=== PATIENT | male | born 1960 | race Caucasian/White ===

== ENCOUNTER 2020-08-26 14:42 | Inpatient (IN) | payer BC, OTHER ==
[~2020-08-26] VITALS: Ht 185.4 cm; Wt 105.6 kg
[2020-08-26] MEDS ORDERED: ACETAMINOPHEN 325 MG TAB PO ONE (15:45)
[2020-08-26] MEDS ORDERED: ONDANSETRON HCL 4 MG/2 ML VIAL ONE (16:21)
[2020-08-26 16:30] LABS: Basophils # (auto) 0.1 10 ^3/uL (0-0.2); Basophils % (auto) 0.5 % (0.0-2.0); Eosinophils # (auto) 0 10 ^3/uL (0-0.8); Hemoglobin 14.2 g/dL (13.5-17.5); Lymphocytes # (auto) 0.8 10 ^3/uL (0.4-5.4); Lymphocytes % (auto) 7.9 % (10.0-50.0); Mean Corpuscular Hemoglobin 30.8 pg (28.0-32.0); Mean Corpuscular Hgb Conc. 33.9 g/dL (32.0-36.0); Mean Corpuscular Volume 91.1 fL (80.0-100.0); Monocytes # (auto) 0.6 10 ^3/uL (0-1.3); Monocytes % (auto) 6.3 % (0.0-12.0); Neutrophils # (auto) 8.8 10 ^3/uL (1.6-8.6); Neutrophils % (auto) 85.3 % (37.0-80.0); Platelet Count (auto) 214 10^3/uL (140-450); Red Cell Distribution Width 14.3 % (11.8-14.3); White Blood Cell 10.3 10^3/uL (4.4-10.8)
[2020-08-26] MEDS ORDERED: ONDANSETRON HCL 4 MG/2 ML VIAL IV ONE (16:30)
[2020-08-26 16:49] LABS: Albumin 3.7 g/dL (3.4-5.0); Anion Gap 8 (5-15); Blood Urea Nitrogen 15 mg/dL (7-18); Calcium 8.5 mg/dL (8.5-10.1); Carbon Dioxide 21 mmol/L (21-32); Chloride 103 mmol/L (98-107); Glucose 92 mg/dL (74-106); Potassium 3.5 mmol/L (3.5-5.1); Sodium 132 mmol/L (136-145)
[2020-08-26 16:58] LABS: Alanine Aminotransferase 25 U/L (16-61); Alkaline Phosphatase 59 U/L (45-117); Aspartate Aminotransferase 14 U/L (15-37); Bilirubin, Total 0.7 mg/dL (0.2-1.0); CRP High Sensitivity 8.24 mg/dL (< 0.3); GFR African American 105 mL/min; GFR Non-African American 87 mL/min; Total Protein 7.1 g/dL (6.4-8.2)
[2020-08-26] MEDS ORDERED: methylPREDNISolone SOD SUCC 125 MG/2 ML VL IV ONE (17:30)
[2020-08-26] MEDS ORDERED: MORPHINE SULF INJ 2 MG/ML SYRINGE 1ML IV PRN ×3 (17:30→18:00)
[2020-08-26] MEDS ORDERED: ENOXAPARIN SOD 100 MG/1 ML SYRINGE SC ONE (17:30)
[2020-08-26] MEDS ORDERED: NITROGLYCERIN 0.4 MG SL TAB SL PRN ×2 (17:30→18:00)
[2020-08-26] MEDS ORDERED: LORazepam 0.5 MG TAB PO PRN (18:00)
[2020-08-26] MEDS ORDERED: DOCUSATE SOD 100 MG CAP PO PRN (18:00)
[2020-08-26] MEDS ORDERED: ONDANSETRON HCL 4 MG/2 ML VIAL IV PRN (18:00)
[2020-08-26] MEDS ORDERED: ALUM & MAG HYDROX-SIMETH LIQ(MAALOX) 30 ML PO PRN (18:00)
[2020-08-26] MEDS ORDERED: HYDROcodone-ACET 5/325MG TAB PO PRN (18:00)
[2020-08-26] MEDS ORDERED: VANCOMYCIN PER PHARMACY 0 MG IV SCH (18:00)
[2020-08-26] MEDS ORDERED: THIAMINE 100mg/ml INJ (200mg/2ml VIAL) IV ONE (18:00)
[2020-08-26] MEDS ORDERED: ACETAMINOPHEN 500 MG TAB PO PRN (18:00)
[2020-08-26] MEDS ORDERED: DIP25C PO (18:06)
[2020-08-26] MEDS ORDERED: ATOR20TA50 PO (18:06)
[2020-08-26] MEDS ORDERED: MULT-1018 PO (18:06)
[2020-08-26] MEDS ORDERED: GLUCTAB8 PO (18:06)
[2020-08-26] MEDS ORDERED: IOHEXOL 350 MG/ML 100ML IJ ONE (18:22)
[2020-08-26 19:20] LABS: Magnesium 1.9 mg/dL (1.6-2.6)
[2020-08-26 19:25] LABS: Cholesterol 118 mg/dL (< 200)
[2020-08-26 19:28] LABS: HDL Cholesterol 40 mg/dL (40-59); LDL Cholesterol 74 mg/dL (< 100); Triglycerides 78 mg/dL (< 150)
[2020-08-26] MEDS ORDERED: PIPERACILLIN-TAZOB 3.375GM 100 ML IV ONE (20:00)
[2020-08-26 20:35] VITALS: BP 116/62
--- NOTE | 2020-08-26 20:35 | NUR ---
PATIENT IN BED, BED IS LOCKED IN LOWEST POSITION. BED RAILS UP X2 HEAD OF BED IS UP >30 DEGREES. BEDSIDE TABLE WITHIN REACH. PATIENT IS ON ROOM AIR. VS WNL. NO S/SX OF DISTRESS OR SOB. PATIENT DENIES PAIN AT THIS TIME. TELE BOX 6 SR 78.
--- NOTE | 2020-08-26 20:35 | NUR ---
Telemetry admit from ER MARISSA LOVETT admitted to Telemetry unit after SBAR received. Patient oriented to Shasta Weathers, primary RN, unit, room, bed, and unit policies regarding patient care and visiting hours. Patient now on continuous telemetry monitoring, tele box # and telemetry reading on arrival to unit is . Patient placed on bedside oxygen, weighed by bedscale and encouraged to call if they need something. All questions and concerns addressed, patient verbalized understanding. Note:
[2020-08-26 22:00] VITALS: BP 116/62
[2020-08-26] MEDS ORDERED: BUDESONIDE (INHALATION) 180 MCG IH IN SCH (22:00)
[2020-08-26] MEDS ORDERED: ALBUTEROL SULF HFA 90MCG INH 200DOSE IN SCH (22:00)
[2020-08-26] MEDS: SODIUM CHLORIDE 0.9% 1,000 ML IV SCH (22:39)
[2020-08-26] MEDS: ATORVASTATIN 20 MG TAB PO SCH (22:40)
[2020-08-26] MEDS: VANCOMYCIN 1GM/250ML 250 ML IV SCH (23:01)
--- NOTE | 2020-08-27 01:29 | NUR ---
REPORT GIVEN TO ALMA MARSHALL.
--- NOTE | 2020-08-27 01:45 | NUR ---
Transfer to [facility] from [facility] Patient arrived to unit via wheelchair. Patient oriented to Naomy Peterson RN, unit, room, bed, call light, and policies and procedures. Patient arrived with no s/s of distress. VSS. Safety measures maintained by keeping the bed locked in lowest position, 2 side rails up, personal items and call light within reach. Will continue to monitor Q1H and PRN.
--- NOTE | 2020-08-27 01:47 | NUR ---
PATIENT TRANSFERRED TO ROOM 221A VIA WHEELCHAIR AFTER NEGATIVE IN-HOUSE COVID TEST. ALL PERSONAL BELONGINGS WITH PATIENT. NO S/SX OF DISTRESS, SOB OR PAIN.
[2020-08-27 05:00] VITALS: BP 134/76
[2020-08-27] MEDS ORDERED: methylPREDNISolone SOD SUCC 40 MG/ML VL IV SCH (06:00)
[2020-08-27] MEDS: PIPERACILLIN-TAZOB 3.375GM 100 ML IV SCH ×2 (06:06→12:14)
[2020-08-27 06:30] LABS: Basophils # (auto) 0 10 ^3/uL (0-0.2); Basophils % (auto) 0.1 % (0.0-2.0); Eosinophils # (auto) 0 10 ^3/uL (0-0.8); Hematocrit 42.9 % (41.0-53.0); Hemoglobin 14.3 g/dL (13.5-17.5); Lymphocytes # (auto) 0.5 10 ^3/uL (0.4-5.4); Lymphocytes % (auto) 5.8 % (10.0-50.0); Mean Corpuscular Hemoglobin 30.5 pg (28.0-32.0); Mean Corpuscular Hgb Conc. 33.2 g/dL (32.0-36.0); Mean Corpuscular Volume 91.9 fL (80.0-100.0); Monocytes # (auto) 0.3 10 ^3/uL (0-1.3); Monocytes % (auto) 3.4 % (0.0-12.0); Neutrophils % (auto) 90.7 % (37.0-80.0); Nucleated Red Blood Cells % 0.1 %; Platelet Count (auto) 212 10^3/uL (140-450); Red Blood Cells 4.67 10^6/uL (4.5-5.90); White Blood Cell 8.8 10^3/uL (4.4-10.8)
[2020-08-27 06:47] LABS: Albumin 3.6 g/dL (3.4-5.0); BUN/Creatinine Ratio 15.2; Calcium 8.8 mg/dL (8.5-10.1)
[2020-08-27 06:50] LABS: Bilirubin, Total 0.6 mg/dL (0.2-1.0); Total Protein 7.5 g/dL (6.4-8.2)
[2020-08-27] MEDS: SODIUM CHLORIDE 0.9% 1,000 ML IV SCH (07:20)
[2020-08-27 09:00] VITALS: BP 124/77
[2020-08-27] MEDS: VANCOMYCIN 1GM/250ML 250 ML IV SCH (09:01)
[2020-08-27] MEDS ORDERED: ENOXAPARIN SOD 120 MG/0.8 ML SYRINGE SC SCH (10:00)
[2020-08-27] MEDS ORDERED: INFLUENZA QUAD 2020-2021 0.5 ML SYRG IM ONE (10:00)
[2020-08-27] MEDS ORDERED: ZINC SULFATE 220mg CAP or TAB PO SCH (10:00)
[2020-08-27] MEDS ORDERED: CHOLECALCIFEROL (VITD3) 2,000 UNIT CAP PO SCH (10:00)
[2020-08-27] MEDS ORDERED: ASCORBIC ACID 1,000 MG TAB PO SCH (10:00)
--- NOTE | 2020-08-27 12:54 | NUR ---
Dr. champion was in to see patient and MD left new orders.
[2020-08-27 13:00] VITALS: BP 128/66
[2020-08-27] MEDS ORDERED: guaiFENesin 200 MG/10 ML UD GT ONE (13:00)
--- NOTE | 2020-08-27 13:35 | NUR ---
ss consult Per consult advanced directive. Patient has been provided with advanced directive and all questions has been answered. Addendum: 08/27/20 at 1335 by Akua ROSADO Amended: Links added.
--- NOTE | 2020-08-27 14:10 | NUR ---
Bony Pérez FACIALIST saw patient and left new orders.
[2020-08-27 17:00] VITALS: BP 128/87
[2020-08-27] MEDS ORDERED: guaiFENesin 200 MG/10 ML UD PO PRN (18:00)
--- NOTE | 2020-08-27 19:45 | NUR ---
Opening Shift Note Assumed care of patient, awake and alert. A&Ox4. Patient sitting up in bed. No S/S of distress/SOB or pain. Safety measures maintained by keeping the bed locked in lowest position, 2 side rails up, personal items and call light within reach. Instructed on POC and to call for assist PRN, will continue to monitor for changes Q1hr and PRN.
[2020-08-27 22:00] VITALS: BP 126/69
[2020-08-27] MEDS ORDERED: THIAMINE 100mg/ml INJ (200mg/2ml VIAL) IV SCH (22:00)
[2020-08-27] MEDS: ATORVASTATIN 20 MG TAB PO SCH (22:19)
[2020-08-28 00:54] LABS: Urine Bacteria FEW /hpf (None Seen); Urine Blood TRACE /uL (Negative); Urine Mucus FEW (None Seen); Urine Specific Gravity 1.029 (1.001-1.035); Urine WBC 3 /hpf (0 - 3)
[2020-08-28 01:09] LABS: Alcohol, Urine < 3.0 mg/dL (0-10); Amphetamine Screen, Urine NEGATIVE (NEGATIVE); Barbiturate Scree,Urine NEGATIVE (NEGATIVE); Benzodiazephine Screen, Urine NEGATIVE (NEGATIVE); Cannabinoid Screen, Urine NEGATIVE (NEGATIVE); Cocaine Screen, Urine NEGATIVE (NEGATIVE); Opiate Scree,Urine NEGATIVE (NEGATIVE); Phencyclidine Screen, Urine NEGATIVE (NEGATIVE)
[2020-08-28 04:55] VITALS: BP 116/72
--- NOTE | 2020-08-28 05:25 | NUR ---
IV insertion IV access obtained, via clean sterile technique by inserting 22 gauge catheter at L Hand after 2 attempt(s). IV secured properly. No trauma to site. Patient tolerated well.
[2020-08-28] MEDS ORDERED: ADENOSINE 89 MG in GIVE UN-DILUTED 0 ML IV STA (08:20)
[2020-08-28 09:00] VITALS: BP 126/82
[2020-08-28] MEDS ORDERED: ENOXAPARIN SOD 40 MG/0.4 ML SYRINGE SC SCH (10:00)
[2020-08-28] MEDS ORDERED: ASPirin-EC 81 mg tab PO SCH (10:00)
--- NOTE | 2020-08-28 10:00 | NUR ---
PATIENT LEFT PER W/C FOR STRESS TEST IN A STABLE CONDITION.
[2020-08-28] MEDS ORDERED: GUAI-41 PO (10:51)
[2020-08-28] MEDS ORDERED: DOXY-340 PO (10:51)
--- NOTE | 2020-08-28 11:00 | NUR ---
PATIENT NOTED TO BE BACK IN HIS ROOM S/P STRESS TEST.
--- NOTE | 2020-08-28 11:30 | NUR ---
WAS IN TO SEE PATIENT AND MD LEFT NEW ORDERS.
[2020-08-28 13:00] VITALS: BP 137/72
[2020-08-28 16:03] VITALS: BP 123/66
[2020-08-28 16:12] VITALS: BP 123/66
[2020-08-28 16:54] VITALS: BP 133/66
[2020-08-28] MEDS ORDERED: INFLUENZA QUAD 2020-2021 0.5 ML SYRG IM ONE (17:15)
--- NOTE | 2020-08-28 19:20 | NUR ---
Discharge instructions given as ordered. Encourage to follow up with PMD as instructed. All questions and concerns addressed. Patient verbalized understanding. Medication reconciliation form completed and copy given to patient. Flu vaccine was given. IV removed with catheter intact, pressure dressing applied. Telemetry unit returned to ICU. Patient having dinner at the time. Report given to Denise MARSHALL and she will discharge patient.
--- NOTE | 2020-08-28 20:20 | NUR ---
Discharge instructions given as ordered. Encourage to follow up with PMD as instructed. All questions and concerns addressed. Patient verbalized understanding. Medication reconciliation form completed and copy given to patient. Needed vaccines given. IV removed with catheter intact, pressure dressing applied, Patient taken down stair for Cab via wheelchair with all personal belongings, accompanied by staff. No distress noted at time of departure.
== END 2020-08-28 20:20 | disposition home or self-care (01) | DRG 189 ==
LOC: ER 14:42 → TELE 14:43 → TELE-EAST 20:40 → TELE-CENTR 08-27 01:41
PROVIDERS: ADMIT Hospitalist; ATTEND Internal Medicine
DX: J96.01 Acute respiratory failure with hypoxia (principal); J20.9 Acute bronchitis, unspecified; Z20.828 Contact with and (suspected) exposure to other viral communicable diseases; E66.01 Morbid (severe) obesity due to excess calories; R19.7 Diarrhea, unspecified; R07.89 Other chest pain; R79.82 Elevated C-reactive protein (CRP); Z96.653 Presence of artificial knee joint, bilateral; R79.89 Other specified abnormal findings of blood chemistry; E78.5 Hyperlipidemia, unspecified; Z23 Encounter for immunization; Z80.42 Family history of malignant neoplasm of prostate; Z80.7 Family history of other malignant neoplasms of lymphoid, hematopoietic and related tissues; Z82.0 Family history of epilepsy and other diseases of the nervous system; Z82.49 Family history of ischemic heart disease and other diseases of the circulatory system; Z68.30 Body mass index [BMI] 30.0-30.9, adult; Z86.718 Personal history of other venous thrombosis and embolism; Z86.711 Personal history of pulmonary embolism
CPT/HCPCS: 36415; 71045; 71275; 78452; 80053; 80061; 80307; 81001; 82728; 83036; 83605; 83615; 83735; 84443; 84484; 85025; 85379; 86141; 87040; 87086; 87426; 93005; 93017; 93306; 93970; 96365; 96372; 96375; G0378; J0153; J2405; J2543

== ENCOUNTER 2023-06-08 15:09 | Emergency (ER) | payer BC ==
[~2023-06-08] VITALS: Ht 185.4 cm; Wt 109.7 kg
[~2023-06-08 15:09] MED LIST: ATOR20TA50 PO; DIPH25CA51 PO; DOXY1CAP57 PO; GLUCTAB8 PO; GUAI-41 PO; MULT-1018 PO
[2023-06-08 16:07] VITALS: BP 154/90; PULSE 77; RESP 18; TEMP 97.8; O2SAT 98
[2023-06-08] MEDS ORDERED: KETOROLAC TROMETH 60MG/2ML VIAL IM ONE (17:00)
[2023-06-08] MEDS ORDERED: TRAM50TA2 PO (17:15)
[2023-06-08] MEDS ORDERED: PRED20TA2 PO (17:15)
== END 2023-06-08 17:21 | disposition home or self-care (01) ==
LOC: ER 15:09
DX: M51.16 Intervertebral disc disorders with radiculopathy, lumbar region (principal); E78.5 Hyperlipidemia, unspecified; Z79.899 Other long term (current) drug therapy; Z90.89 Acquired absence of other organs
CPT/HCPCS: 72100; 96372; 99283; J1885